=== PATIENT | male | born 1935 | race Caucasian/White ===

== ENCOUNTER 2021-01-19 20:24 | Inpatient (IN) | payer OTHER, MEDICARE ==
[~2021-01-19] VITALS: Ht 177.8 cm; Wt 84.0 kg
[~2021-01-19 20:24] MED LIST: Hydrocodone-Ap1 EA23; LOSARTAN POTAS100 MG; OXYACE5T PO; Percocet 5-3251 EACH PO
[2021-01-20 01:29] LABS: BASOPHILS ABSOLUTE AUTO 0.02 K/mm3 (0.00-0.23); BASOPHILS PERCENT AUTO 0 % (0-2); EOSINOPHILS ABSOLUTE AUTO 0.01 K/mm3 (0.00-0.68); EOSINOPHILS PERCENT AUTO 0 % (0-6); Hematocrit 34.1 % (37.0-53.0); Hemoglobin 10.5 g/dL (13.5-17.5); IMMATURE GRAN ABSOLUTE AUTO 0.04 K/mm3 (0.00-0.10); IMMATURE GRAN PERCENT AUTO 0 % (0-1); LYMPHOCYTES ABSOLUTE AUTO 0.48 K/mm3 (0.84-5.20); LYMPHOCYTES PERCENT AUTO 4 % (21-46); MONOCYTES ABSOLUTE AUTO 0.88 K/mm3 (0.16-1.47); MONOCYTES PERCENT AUTO 8 % (4-13); Mean Corpuscular HGB Conc 30.8 g/dL (31.5-36.5); Mean Corpuscular Volume 84 fL (80-100); Mean Platelet Volume 10.9 fL (9.1-12.4); NEUTROPHILS ABSOLUTE AUTO 9.54 K/mm3 (1.96-9.15); NEUTROPHILS PERCENT AUTO 87 % (41-73); Platelet Count 181 K/mm3 (150-400); RDW Coefficient Variation 14.6 % (11.7-14.2); RDW Standard Deviation 44.9 fL (35.1-46.3); Red Blood Cell Count 4.04 M/mm3 (4.30-5.90); White Blood Cell Count 10.97 K/mm3 (4.00-11.30)
[2021-01-20 01:44] LABS: Alanine Aminotransfer (ALT/SGP 12 U/L (12-78); Albumin, Blood 3.2 g/dL (3.4-5.0); Albumin/Globulin Ratio 0.9 (0.8-1.8); Alk Phos 68 U/L (50-136); Anion Gap 4 mmol/L (6-16); Aspartate Aminotrans (AST/SGOT 16 U/L (12-37); Bilirubin, Total 0.9 mg/dL (0.1-1.0); Blood Urea Nitrogen 21 mg/dL (8-24); Bun/Creatinine Ratio 20.2 (12.0-20.0); CO2, Blood 23 mmol/L (21-32); Calcium, Blood 8.1 mg/dL (8.5-10.1); Chloride, Blood 112 mmol/L (98-108); Creatinine, Blood 1.04 mg/dL (0.60-1.20); Globulin, Blood 3.4 g/dL (2.2-4.0); Glomerular Filtration Rate >60 (60-); Glucose, Blood 135 mg/dL (70-99); Potassium, Blood 4.6 mmol/L (3.5-5.5); Sodium, Blood 139 mmol/L (136-145); Total Protein, Blood 6.6 g/dL (6.4-8.2)
[2021-01-20 02:24] LABS: SARS-Cov-2 (COVID-19) PCR, MMC NEGATIVE (NEGATIVE)
--- NOTE | 2021-01-20 04:15 | NUR ---
SHIFT SUMMARY R HIP FX. PT HAS BEEN SLEEPING SINCE ARRIVAL TO UNIT, MEDICATED PER EMAR FOR PAIN HE REPORTED RELIEF AND TOLERABLE. R LEG SWOLLEN BUT PT REPORTS FULL SENSATION, ABLE TO MOVE TOES. NPO SINCE ARRIVAL TO UNIT, IV FLUIDS INFUSING. PT REPOSITIONS WELL IN BED. PLAN IS FOR SURGERY TODAY.
--- NOTE | 2021-01-20 10:32 | NUR ---
Echo being done at this time. Patient has denied need for pain med this a.m. Patient remains NPO for impending surgery.
--- NOTE | 2021-01-20 14:06 | NUR ---
C/o R hip pain , 09/02 at 1300. 25mcg Fentanyl iv given and pt. verbalize relief. Is a /10 at present. Urinal spill in bed and linen changed, pt. tolerate well with mild log rolling, pillow and assist 2. Resting at this time with no complaint. Remains NPO.
--- NOTE | 2021-01-20 18:38 | NUR ---
SHIFT SUMMARY SINCE ASSUMING CARE CARE AT APPROX 1430, PT TOLERATING PO. NPO AT MIDNIGHT PLAN FOR SURGERY TOMORROW. VOIDING. VITALS STABLE.
--- NOTE | 2021-01-21 04:34 | NUR ---
SHIFT SUMMARY PT [id number] WITH INTERMITTENT CONFUSION DURING SHIFT. WOULD ATTEMPT TO GET OUT OF BED AND FORGET THINGS OCCASIONALLY. BED ALARM ON DURING SHIFT. INC OF URINE DURING SHIFT BUT WOULD CALL TO USE URINAL AT TIMES. PAIN MANAGED PER EMAR. PT ABLE TO ROLL AND HELP REPOSITION IN BED. PLAN IS FOR SURGERY TODAY. NPO SINCE MIDNIGHT.
--- NOTE | 2021-01-21 11:10 | NUR ---
Pt. downstairs for surgery via bed.
--- NOTE | 2021-01-21 11:43 | NUR ---
PT INTO SDS VIA BED FROM SURG FLOOR. History, Chart, Medications and Allergies reviewed before start of procedure.Patient confirms NPO status and agrees with scheduled surgery. Lungs clear T/O to Auscultation.PT IS ALERT WITH EPISODES OF SLIGHT CONFUSION.EASILY REDIRECTED.
--- NOTE | 2021-01-21 12:13 | NUR ---
IV ACCESS TO RIGHT FOR ARM PRESENT UPON ARRIVAL TO [facility]. 20G, PATENT, FLUSHES EASILY WITH 10CC SALINE FLUSH. WINDOW DRESSING INTACT. COVERED WITH GAUZE AND NET SLEEVE TO PREVENT PT FROM PULLING OUT IV.
[2021-01-21 13:40] LABS: Source, Urine Catheter
--- NOTE | 2021-01-21 13:44 | NUR ---
ARRIVED INTO PACU WARM BLANKETS APPLIED DRSSINGS TIMES TWO IN PLACE RIGHT HIP ORAL AIRWAY.
[2021-01-21 13:57] LABS: Appearance, Urine Clear (Clear); Bilirubin, Urine Neg (Neg); Blood, Urine 1+ (Neg); Color, Urine Yellow (P-Yellow); Glucose Qualitative, Urine Neg (Neg); Ketones, Urine Neg (Neg); Leukocyte Esterase, Urine Neg (Neg); Nitrite, Urine Neg (Neg); Protein, Urine Neg (Neg); Specific Gravity, Urine 1.015 (1.003-1.022); Urobilinogen, Urine NORM (Normal)
[2021-01-21 14:12] LABS: White Blood Cells, Urine 0-2 /hpf (0-5)
[2021-01-21 14:13] LABS: Bacteria Rare /hpf; Squamous Epithelial Cells Not Seen /hpf (Few)
--- NOTE | 2021-01-21 14:36 | NUR ---
TAKEN TO SURGICAL FLOOR AFTER GIVEING REPORT. MET RN WITH PATIENT IN ROOM UPDATED REPORT.
--- NOTE | 2021-01-21 14:54 | NUR ---
Pt. arrive via bed from PACU at 1445. Drowsy but awakens easily. IVF infusing, o2 on at 4L per nc for sat 94%. Denies pain or nausea. Drsgs x 2 RLE intact, clean and dry.
--- NOTE | 2021-01-21 17:03 | NUR ---
Shift Summary: Pt. alert and oriented at times and then has acute confusion. Has pulled out 2 IV sites today, has new one in R upper Arm, covered with coban to protect and frequent reminders to not pull out. At times cannot remember that he had surgery today and requesting to "get up". At this time is on bedpan with help of aide. is in room. Dinner ordered and IVF infusing. Denies any pain. Oxygen on at 2L to keep sats at 94%.
[2021-01-21 17:15] LABS: Percent Saturation 6.3 % (20.0-50.0)
--- NOTE | 2021-01-21 18:20 | NUR ---
Pt. very agitated during visit " i want to get up and shave, let me up". After left, pt. fall asleep and did not eat dinner. No c/o pain. IVF infusing. Bed alarm on to alert staff of pt. rising.
[2021-01-22 04:16] LABS: BASOPHILS ABSOLUTE AUTO 0.01 K/mm3 (0.00-0.23); BASOPHILS PERCENT AUTO 0 % (0-2); EOSINOPHILS ABSOLUTE AUTO 0.01 K/mm3 (0.00-0.68); EOSINOPHILS PERCENT AUTO 0 % (0-6); Hematocrit 24.8 % (37.0-53.0); Hemoglobin 7.9 g/dL (13.5-17.5); IMMATURE GRAN ABSOLUTE AUTO 0.02 K/mm3 (0.00-0.10); IMMATURE GRAN PERCENT AUTO 0 % (0-1); LYMPHOCYTES ABSOLUTE AUTO 0.67 K/mm3 (0.84-5.20); LYMPHOCYTES PERCENT AUTO 9 % (21-46); MONOCYTES ABSOLUTE AUTO 0.91 K/mm3 (0.16-1.47); MONOCYTES PERCENT AUTO 12 % (4-13); Mean Corpuscular HGB 26.3 pg (26.0-34.0); Mean Corpuscular HGB Conc 31.9 g/dL (31.5-36.5); Mean Corpuscular Volume 83 fL (80-100); Mean Platelet Volume 11.2 fL (9.1-12.4); NEUTROPHILS PERCENT AUTO 78 % (41-73); Platelet Count 115 K/mm3 (150-400); RDW Coefficient Variation 14.6 % (11.7-14.2); RDW Standard Deviation 44.5 fL (35.1-46.3); White Blood Cell Count 7.32 K/mm3 (4.00-11.30)
[2021-01-22 04:42] LABS: Anion Gap 5 mmol/L (6-16); Blood Urea Nitrogen 21 mg/dL (8-24); Bun/Creatinine Ratio 21.7 (12.0-20.0); CO2, Blood 22 mmol/L (21-32); Calcium, Blood 7.8 mg/dL (8.5-10.1); Chloride, Blood 107 mmol/L (98-108); Creatinine, Blood 0.97 mg/dL (0.60-1.20); Glomerular Filtration Rate >60 (60-); Glucose, Blood 137 mg/dL (70-99); Magnesium, Blood 1.7 mg/dL (1.6-2.4); Potassium, Blood 4.4 mmol/L (3.5-5.5); Sodium, Blood 134 mmol/L (136-145)
--- NOTE | 2021-01-22 06:18 | NUR ---
Pt is in bed at this time where he remains throughout the night and is resting cmfortably. He is alert but is pleasantly confused, condition is stable. Assistance with basic care is required and provided as necessary, medicated as schedule. IV line in the right upper arm and is patent, no discomfort at the IV insertion site. Pt assisted with turning and repositioning to enhance comfort, insisted that he had no pain despite his recent surgical procedure on his right hip. His call panchal was given to him and was encouraged to call for help when assistance is needed as he is monitored.
[2021-01-22 17:09] LABS: Hematocrit 25.3 % (37.0-53.0)
--- NOTE | 2021-01-22 18:18 | NUR ---
SUMMARY: PT IS POD1 R HIP FIXATION, NAILING. PT IS A/O, SOMETIMES FORGETFUL BUT FOLLOWING COMMANDS AND USING CALL LIGHT. SURGICAL SITE WNL, PT HAS DENIED PAIN, CSM INTACT TO R LEG. ABLE TO WORK WITH THERAPY, BUT VERY WEAK, MAX ASSIST WITH 3 STAFF TO RECLINER. NO ACUTE CONCERNS AT THIS TIME, WILL MONITOR AND REPOR TO NOC RN
[2021-01-23 04:04] LABS: BASOPHILS ABSOLUTE AUTO 0.01 K/mm3 (0.00-0.23); BASOPHILS PERCENT AUTO 0 % (0-2); EOSINOPHILS ABSOLUTE AUTO 0.25 K/mm3 (0.00-0.68); EOSINOPHILS PERCENT AUTO 4 % (0-6); Hematocrit 21.9 % (37.0-53.0); Hemoglobin 7.2 g/dL (13.5-17.5); IMMATURE GRAN ABSOLUTE AUTO 0.03 K/mm3 (0.00-0.10); IMMATURE GRAN PERCENT AUTO 1 % (0-1); LYMPHOCYTES ABSOLUTE AUTO 1.08 K/mm3 (0.84-5.20); LYMPHOCYTES PERCENT AUTO 17 % (21-46); MONOCYTES ABSOLUTE AUTO 0.61 K/mm3 (0.16-1.47); MONOCYTES PERCENT AUTO 10 % (4-13); Mean Corpuscular HGB Conc 32.9 g/dL (31.5-36.5); Mean Corpuscular Volume 82 fL (80-100); Mean Platelet Volume 11.5 fL (9.1-12.4); NEUTROPHILS ABSOLUTE AUTO 4.47 K/mm3 (1.96-9.15); NEUTROPHILS PERCENT AUTO 69 % (41-73); Platelet Count 143 K/mm3 (150-400); RDW Coefficient Variation 14.8 % (11.7-14.2); RDW Standard Deviation 43.8 fL (35.1-46.3); Red Blood Cell Count 2.67 M/mm3 (4.30-5.90); White Blood Cell Count 6.45 K/mm3 (4.00-11.30)
[2021-01-23 04:21] LABS: Albumin, Blood 2.3 g/dL (3.4-5.0); Anion Gap 5 mmol/L (6-16); Blood Urea Nitrogen 28 mg/dL (8-24); Bun/Creatinine Ratio 25.7 (12.0-20.0); CO2, Blood 23 mmol/L (21-32); Calcium, Blood 7.6 mg/dL (8.5-10.1); Chloride, Blood 108 mmol/L (98-108); Creatinine, Blood 1.09 mg/dL (0.60-1.20); Glomerular Filtration Rate >60 (60-); Glucose, Blood 103 mg/dL (70-99); Sodium, Blood 136 mmol/L (136-145)
--- NOTE | 2021-01-23 05:56 | NUR ---
SHIFT SUMMARY POD2 R FEMUR FIXATION/NAILING, ALERT BUT CONFUSED/FORGETFUL, TOLERATING PO, HEAVY 2 PERSON STAND PIVOT TO GET FROM CHAIR TO BED, PLEASANT AND COOPERATIVE c ALL NURSING CARE. DENIES PAIN T/O SHIFT. NO ACUTE EVENTS THIS SHIFT. CALL LIGHT IN REACH, WILL CTM AND REPORT TO DAY RN.
--- NOTE | 2021-01-23 16:51 | NUR ---
SHIFT SUMMARY PT POD #2 FOR A R FEMUR FIXATION WITH NAILING. PT DENIES PAIN THIS SHIFT. MEDICATED ONCE WITH TYLENOL FOR HEAD ACHE. PT INCONT OF URINE AND CHANGED NEEDED. [address] ON THE R HIP CDI. PT IS A/O X2; PLEASANT AND CONFUSED AT TIMES. EASILY REDIRECTABLE. HEAVY 2 PERSON MAX ASSIST TO GET UP. VSS. WILL REPORT TO EFRAIN AGEE.
[2021-01-24 04:06] LABS: Hematocrit 21.1 % (37.0-53.0); Hemoglobin 6.9 g/dL (13.5-17.5)
--- NOTE | 2021-01-24 06:42 | NUR ---
PT IS A/OX2-3 WITH INTERMITENT FORGETFULLNESS AND CONFUSION. HE IS ABLE TO MAKE HIS NEEDS KNOWN. NO EVENTS OVERNIGHT. KAW. 2 PERSON MAX ASSIST W/BED REPOSITIONING. WEARING ADULT DISPOSABLE BRIEFS FOR B/B INCONTINENCE. NO BM OVERNIGHT. PASSING GAS. DENIES ANY N/V. BT'S POS X4. PIV TO RUE PATENT, FLUSHES WELL, SL. ROOM AIR. CBS. RT HIP INCISOIN W/2 AQUACELS- DRSG'S WITH SMALL AMT OF DRNG/SHADOWING. POS CSM'S TO RLE/RT FOOT. DENIED ANY NUMBNESS/TINGLING. PURPLE BRUISING TO PENIS/GROIN, SUSTIANED IN FALL. RT HIP S/P NAILING. FX SUSTIANED FROM FALL OVER HIS DOG. TTWB TO RLE. PLAN IS TO D/C TO SNF FOR REHAB.
--- NOTE | 2021-01-24 15:20 | NUR ---
TRANSFUSION FINISHED, PT TOLERATED WELL. NO SIGNS OF TRANSFUSION REACTION AT THIS TIME, LUNG SOUNDS REMAIN UNCHANGED. VITAL SIGNS STABLE THROUGHOUT.
--- NOTE | 2021-01-24 16:12 | NUR ---
SHIFT SUMMARY PT A/O TODAY. VITAL SIGNS STABLE. POD3 R HIP NAILING, AQUACEL DRESSINGS CHANGED TODAY, C/D/I. TRANSFUSION OF PRBCS, TOLERATED WELL. WILL REPEAT H/H TODAY. WORKED WITH PT/OT TODAY BUT WAS NOT ABLE TO GET OUT OF BED. PT REPORTED L KNEE PAIN TODAY, BUT NO PAIN IN R HIP. TOLERATING PO INTAKE, VOIDING AND PASSING FLATUS. PLAN TO DC TOMORROW TO SNF IF H/H STABLE. WILL REPORT TO ONCOMING RN.
[2021-01-24 17:13] LABS: Hematocrit 26.9 % (37.0-53.0); Hemoglobin 8.6 g/dL (13.5-17.5)
[2021-01-25 04:44] LABS: Hematocrit 24.9 % (37.0-53.0); Hemoglobin 8.2 g/dL (13.5-17.5)
--- NOTE | 2021-01-25 05:30 | NUR ---
Pt is in bed at this time and is resting in stable condition. Alert and confused, assisted with care and adls, assisted with bathroom and toileting needs as pt depends on staff for his basic care needs. Denies pain/discomfort, medicated as scheduled. R hip incision intatct and covered with aquacel dressing. Bruising noted on his inguinal during assessment. Pt given his call panchal and encouraged to call for help when assistance is needed as he is monitored.
[2021-01-25 14:34] LABS: SARS-Cov-2 (COVID-19) PCR, MMC NEGATIVE (NEGATIVE)
--- NOTE | 2021-01-25 17:11 | NUR ---
SHIFT SUMMARY POD 4 HIP FIXTURE PATIENT ORIENTED X4 DURING ASSESSMENT BUT WOULD AWAKE CONFUSED AND ASKING WHERE HIS WAS. MORE SLEEPY TODAY BUT WAS ABLE TO WORK WITH THERAPY. DENIES PAIN TO THIS RN. BRUISING REMAINS TO R GROIN, REMAINS UNCHANGED. TOLERATING PO. INC OF VOID. PLAN IS TO DC TO SNF T[place]OR[place].
--- NOTE | 2021-01-26 05:12 | NUR ---
PT IN BED AND IS RESTING QUIETLY, CONDITION IS STABLE. ALERT, AWAKE, BUT IS PLEASANTLY CONFUSED. ASSISTED WITH CARE AND ADLS, ASSISTED WITH REPOSITIONING TO ENHANCE COMFORT, MEDICATED SCHEDULED. CALL LIGHT GIVEN TO HIM AND ENCOURAGED TO CALL FOR HELP WHEN ASSISTANCE IS NEEDED HE IS MONITORED.
--- NOTE | 2021-01-26 10:58 | NUR ---
Pt. discharged at 1050 to [facility]. Report called. W/C transport here and belongins sent with pt.-2 person max assist with gaitbelt to w/c. Patient tolerate well. New brief placed prior to dc and francisco javier care done.
== END 2021-01-26 10:50 | DRG 481 ==
LOC: ER 20:24 → SURS 01-20 00:34 → ER 01-20 01:34 → SURS 01-20 02:00
PROVIDERS: Anesthesiology; Internal Medicine; Orthopaedic Surgery; Physician Assistant; ADMIT Internal Medicine
PROC: 0QS636Z Reposition Right Upper Femur with Intramedullary Internal Fixation Device, Percutaneous Approach (ICD-10-PCS; 2021-01-21)
PROC: 30233N1 Transfusion of Nonautologous Red Blood Cells into Peripheral Vein, Percutaneous Approach (ICD-10-PCS; principal; 2021-01-24)
DX: S72.141A Displaced intertrochanteric fracture of right femur, initial encounter for closed fracture (principal); D62 Acute posthemorrhagic anemia; G91.2 (Idiopathic) normal pressure hydrocephalus; W01.0XXA Fall on same level from slipping, tripping and stumbling without subsequent striking against object, initial encounter; M10.9 Gout, unspecified; Z96.651 Presence of right artificial knee joint; Z20.822 Contact with and (suspected) exposure to COVID-19; I35.0 Nonrheumatic aortic (valve) stenosis; I10 Essential (primary) hypertension; Y92.009 Unspecified place in unspecified non-institutional (private) residence as the place of occurrence of the external cause
CPT/HCPCS: 36415; 70450; 73502; 80048; 80053; 80069; 81001; 82728; 83540; 83550; 83735; 85014; 85018; 85025; 86850; 86900; 86901; 86923; 90686; 93005; 93010; 93306; 96374; 96375; 97110; 97162; 97166; 97530; 99285-25; A9270; C1713; C1769; J0690; J1100; J1650; J2270; J2370; J2405; J2704; J3010; J7030; J7120; P9016; U0004

== ENCOUNTER 2021-04-09 21:54 | Emergency (ER) | payer MEDICARE ==
[~2021-04-09] VITALS: Ht 175.3 cm; Wt 74.8 kg
[2021-04-09] MEDS ORDERED: Voltaren100 GM TOP (22:42)
[2021-04-09] MEDS ORDERED: MIRALAX11910 PO (22:48)
[2021-04-09] MEDS ORDERED: DOK100 MG PO (22:48)
[2021-04-09] MEDS ORDERED: Senna Laxative8.6 MG (22:49)
== END 2021-04-10 01:48 | disposition home or self-care (01) ==
LOC: ER 21:54
DX: M17.12 Unilateral primary osteoarthritis, left knee (principal); M10.9 Gout, unspecified; M19.90 Unspecified osteoarthritis, unspecified site; Z96.651 Presence of right artificial knee joint
CPT/HCPCS: 73560-LT; 96372; 96374; 99283-25; A9270; J1885; J2270

== ENCOUNTER 2021-07-18 18:34 | Observation (INO) | payer MEDICARE ==
[~2021-07-18] VITALS: Ht 162.6 cm; Wt 77.1 kg
[~2021-07-18 18:34] MED LIST changes: +DOK100 MG PO; +MIRALAX11910 PO; +Senna Laxative8.6 MG; +Voltaren100 GM TOP
[2021-07-18 19:40] LABS: BASOPHILS ABSOLUTE AUTO 0.03 K/mm3 (0.00-0.23); BASOPHILS PERCENT AUTO 0 % (0-2); EOSINOPHILS ABSOLUTE AUTO 0.47 K/mm3 (0.00-0.68); EOSINOPHILS PERCENT AUTO 5 % (0-6); Hematocrit 36.1 % (37.0-53.0); Hemoglobin 11.2 g/dL (13.5-17.5); IMMATURE GRAN ABSOLUTE AUTO 0.03 K/mm3 (0.00-0.10); IMMATURE GRAN PERCENT AUTO 0 % (0-1); LYMPHOCYTES ABSOLUTE AUTO 1.96 K/mm3 (0.84-5.20); LYMPHOCYTES PERCENT AUTO 21 % (21-46); MONOCYTES ABSOLUTE AUTO 0.69 K/mm3 (0.16-1.47); MONOCYTES PERCENT AUTO 8 % (4-13); Mean Corpuscular HGB 23.3 pg (26.0-34.0); Mean Corpuscular Volume 75 fL (80-100); Mean Platelet Volume 9.3 fL (9.1-12.4); NEUTROPHILS ABSOLUTE AUTO 6.07 K/mm3 (1.96-9.15); NEUTROPHILS PERCENT AUTO 66 % (41-73); Platelet Count 284 K/mm3 (150-400); RDW Coefficient Variation 17.6 % (11.7-14.2); RDW Standard Deviation 47.8 fL (35.1-46.3); Red Blood Cell Count 4.81 M/mm3 (4.30-5.90); White Blood Cell Count 9.25 K/mm3 (4.00-11.30)
[2021-07-18 20:06] LABS: Alanine Aminotransfer (ALT/SGP 14 U/L (12-78); Albumin, Blood 3.1 g/dL (3.4-5.0); Albumin/Globulin Ratio 0.8 (0.8-1.8); Alk Phos 76 U/L (50-136); Anion Gap 6 mmol/L (6-16); Aspartate Aminotrans (AST/SGOT 10 U/L (12-37); Bilirubin, Total 0.7 mg/dL (0.1-1.0); Blood Urea Nitrogen 19 mg/dL (8-24); Bun/Creatinine Ratio 25.6 (12.0-20.0); CO2, Blood 25 mmol/L (21-32); Calcium, Blood 8.7 mg/dL (8.5-10.1); Chloride, Blood 106 mmol/L (98-108); Creatinine, Blood 0.74 mg/dL (0.60-1.20); Ethanol (Alcohol), Blood, Med <3 mg/dL; Glomerular Filtration Rate >60 (60-); Glucose, Blood 107 mg/dL (70-99); Potassium, Blood 4.1 mmol/L (3.5-5.5); Salicylate <1.7 mg/dL (2.8-20.0); Sodium, Blood 137 mmol/L (136-145); Total Protein, Blood 7.1 g/dL (6.4-8.2)
[2021-07-18 20:12] LABS: Acetaminophen, Random <2.0 ug/mL (10.0-30.0)
== END 2021-07-25 10:32 ==
LOC: ER 18:34 → EOR 18:35
PROVIDERS: Physician Assistant; ADMIT Emergency Medicine
DX: F03.91 Unspecified dementia, unspecified severity, with behavioral disturbance (principal); R45.851 Suicidal ideations
CPT/HCPCS: 80053; 85025; 93005; 93010; A9270; G0480; J1885

== ENCOUNTER → 2021-09-06 | Outpatient (CLI) | payer MEDICARE, OTHER ==
[2021-09-06 17:09] LABS: Hemoglobin 12.7 g/dL (13.5-17.5); Mean Corpuscular HGB 23.7 pg (26.0-34.0); Mean Corpuscular Volume 77 fL (80-100); Mean Platelet Volume 10.2 fL (9.1-12.4); Platelet Count 344 K/mm3 (150-400); RDW Coefficient Variation 17.2 % (11.7-14.2); RDW Standard Deviation 47.5 fL (35.1-46.3); Red Blood Cell Count 5.35 M/mm3 (4.30-5.90); White Blood Cell Count 8.77 K/mm3 (4.00-11.30)
[2021-09-06 17:26] LABS: Bun/Creatinine Ratio 26.8 (12.0-20.0); Calcium, Blood 8.6 mg/dL (8.5-10.1); Creatinine, Blood 0.82 mg/dL (0.60-1.20)
== END | disposition home or self-care (01) ==
LOC: EDSTATUS 14:05 → LAB RH 14:32
PROVIDERS: Internal Medicine
DX: I11.9 Hypertensive heart disease without heart failure (principal); G91.2 (Idiopathic) normal pressure hydrocephalus; M10.9 Gout, unspecified; I35.0 Nonrheumatic aortic (valve) stenosis
CPT/HCPCS: 80048; 85027

== ENCOUNTER 2023-09-26 19:11 | Emergency (ER) | payer MEDICARE, OTHER ==
[~2023-09-26] VITALS: Ht 177.8 cm; Wt 68.0 kg
[2023-09-26 22:19] LABS: BASOPHILS ABSOLUTE AUTO 0.03 K/mm3 (0.00-0.23); BASOPHILS PERCENT AUTO 1 % (0-2); EOSINOPHILS ABSOLUTE AUTO 0.25 K/mm3 (0.00-0.68); EOSINOPHILS PERCENT AUTO 4 % (0-6); Hematocrit 37.6 % (37.0-53.0); Hemoglobin 11.5 g/dL (13.5-17.5); IMMATURE GRAN ABSOLUTE AUTO 0.02 K/mm3 (0.00-0.10); IMMATURE GRAN PERCENT AUTO 0 % (0-1); LYMPHOCYTES ABSOLUTE AUTO 1.67 K/mm3 (0.84-5.20); LYMPHOCYTES PERCENT AUTO 26 % (21-46); MONOCYTES ABSOLUTE AUTO 0.62 K/mm3 (0.16-1.47); MONOCYTES PERCENT AUTO 10 % (4-13); Mean Corpuscular HGB 22.8 pg (26.0-34.0); Mean Corpuscular HGB Conc 30.6 g/dL (31.5-36.5); Mean Corpuscular Volume 75 fL (80-100); Mean Platelet Volume 10.2 fL (9.1-12.4); NEUTROPHILS ABSOLUTE AUTO 3.81 K/mm3 (1.96-9.15); NEUTROPHILS PERCENT AUTO 60 % (41-73); Platelet Count 225 K/mm3 (150-400); RDW Coefficient Variation 17.4 % (11.7-14.2); RDW Standard Deviation 46.7 fL (35.1-46.3); Red Blood Cell Count 5.05 M/mm3 (4.30-5.90)
[2023-09-26 22:48] LABS: Albumin, Blood 3.7 g/dL (3.4-5.0); Albumin/Globulin Ratio 0.9 (0.8-1.8); Bun/Creatinine Ratio 28.8 (12.0-20.0); Calcium, Blood 8.7 mg/dL (8.5-10.1); Creatinine, Blood 0.9 mg/dL (0.60-1.20); Globulin, Blood 3.9 g/dL (2.2-4.0); Total Protein, Blood 7.6 g/dL (6.4-8.2)
[2023-09-27] MEDS ORDERED: CEPH500 PO (00:39)
[2023-09-27] MEDS ORDERED: Cephalexin Monohydrate 500 MG Cap PO ONE (00:40)
[2023-09-27 04:00] VITALS: BP 118/72
== END 2023-09-27 05:34 | disposition home or self-care (01) ==
LOC: ER 19:11
PROVIDERS: Physician Assistant
DX: L03.032 Cellulitis of left toe (principal); F03.90 Unspecified dementia, unspecified severity, without behavioral disturbance, psychotic disturbance, mood disturbance, and anxiety; Z79.899 Other long term (current) drug therapy
CPT/HCPCS: 73660; 73701; 80053; 85025; 99284-25; A9270; Q9967

== ENCOUNTER 2023-10-28 06:05 | Emergency (ER) | payer MEDICARE, OTHER ==
[~2023-10-28] VITALS: Ht 177.8 cm; Wt 74.8 kg
[~2023-10-28 06:05] MED LIST changes: +CEPH500 PO
[2023-10-28 06:38] LABS: BASOPHILS ABSOLUTE AUTO 0.03 K/mm3 (0.00-0.23); BASOPHILS PERCENT AUTO 0 % (0-2); EOSINOPHILS ABSOLUTE AUTO 0.17 K/mm3 (0.00-0.68); EOSINOPHILS PERCENT AUTO 2 % (0-6); Hematocrit 33.8 % (37.0-53.0); Hemoglobin 10.5 g/dL (13.5-17.5); IMMATURE GRAN ABSOLUTE AUTO 0.03 K/mm3 (0.00-0.10); IMMATURE GRAN PERCENT AUTO 0 % (0-1); LYMPHOCYTES ABSOLUTE AUTO 1.02 K/mm3 (0.84-5.20); LYMPHOCYTES PERCENT AUTO 12 % (21-46); MONOCYTES ABSOLUTE AUTO 0.88 K/mm3 (0.16-1.47); MONOCYTES PERCENT AUTO 11 % (4-13); Mean Corpuscular HGB 23.1 pg (26.0-34.0); Mean Corpuscular HGB Conc 31.1 g/dL (31.5-36.5); Mean Corpuscular Volume 74 fL (80-100); Mean Platelet Volume 10.3 fL (9.1-12.4); NEUTROPHILS ABSOLUTE AUTO 6.13 K/mm3 (1.96-9.15); NEUTROPHILS PERCENT AUTO 74 % (41-73); Platelet Count 195 K/mm3 (150-400); RDW Coefficient Variation 16.9 % (11.7-14.2); RDW Standard Deviation 45.1 fL (35.1-46.3); Red Blood Cell Count 4.55 M/mm3 (4.30-5.90); White Blood Cell Count 8.26 K/mm3 (4.00-11.30)
[2023-10-28 06:58] LABS: Alanine Aminotransfer (ALT/SGP 13 U/L (12-78); Albumin, Blood 3.2 g/dL (3.4-5.0); Albumin/Globulin Ratio 0.9 (0.8-1.8); Alk Phos 110 U/L (50-136); Anion Gap 11 mmol/L (3-11); Aspartate Aminotrans (AST/SGOT 10 U/L (12-37); Bilirubin, Total 1.4 mg/dL (0.1-1.0); Blood Urea Nitrogen 20 mg/dL (8-24); CO2, Blood 23 mmol/L (21-32); Calcium, Blood 8.4 mg/dL (8.5-10.1); Chloride, Blood 108 mmol/L (98-108); Creatinine, Blood 0.84 mg/dL (0.60-1.20); Globulin, Blood 3.7 g/dL (2.2-4.0); Glomerular Filtration Rate 83 (60-); Glucose, Blood 113 mg/dL (70-99); Sodium, Blood 138 mmol/L (136-145); Total Protein, Blood 6.9 g/dL (6.4-8.2)
[2023-10-28] MEDS ORDERED: Ketorolac Tromethamine 30mg Vial IV ONE (07:10)
[2023-10-28 08:00] VITALS: BP 88/57
[2023-10-28] MEDS ORDERED: ACET500 PO (08:09)
== END 2023-10-28 15:08 | disposition home or self-care (01) ==
LOC: ER 06:05
PROVIDERS: Student in an Organized Health Care Education/Training Program
DX: M17.12 Unilateral primary osteoarthritis, left knee (principal); G89.29 Other chronic pain; Z79.899 Other long term (current) drug therapy
CPT/HCPCS: 73562-LT; 80053; 85025; 85651; 86140; J1885

== ENCOUNTER 2024-04-22 02:49 | Observation (INO) | payer MEDICARE, OTHER ==
[~2024-04-22] VITALS: Ht 170.2 cm; Wt 72.6 kg
[~2024-04-22 02:49] MED LIST changes: +ACET500 PO; -Senna Laxative8.6 MG; +Senna Laxative8.6 MG PO
[2024-04-22 03:22] LABS: BASOPHILS ABSOLUTE AUTO 0.03 K/mm3 (0.00-0.23); BASOPHILS PERCENT AUTO 0 % (0-2); EOSINOPHILS ABSOLUTE AUTO 0.48 K/mm3 (0.00-0.68); EOSINOPHILS PERCENT AUTO 7 % (0-6); Hemoglobin 9.4 g/dL (13.5-17.5); IMMATURE GRAN ABSOLUTE AUTO 0.02 K/mm3 (0.00-0.10); IMMATURE GRAN PERCENT AUTO 0 % (0-1); LYMPHOCYTES ABSOLUTE AUTO 1.52 K/mm3 (0.84-5.20); LYMPHOCYTES PERCENT AUTO 23 % (21-46); MONOCYTES PERCENT AUTO 10 % (4-13); Mean Corpuscular HGB 25.3 pg (26.0-34.0); Mean Corpuscular HGB Conc 30.3 g/dL (31.5-36.5); Mean Corpuscular Volume 84 fL (80-100); Mean Platelet Volume 11.1 fL (9.1-12.4); NEUTROPHILS ABSOLUTE AUTO 3.99 K/mm3 (1.96-9.15); NEUTROPHILS PERCENT AUTO 59 % (41-73); Platelet Count 173 K/mm3 (150-400); RDW Coefficient Variation 14.7 % (11.7-14.2); RDW Standard Deviation 45.1 fL (35.1-46.3); Red Blood Cell Count 3.71 M/mm3 (4.30-5.90); White Blood Cell Count 6.74 K/mm3 (4.00-11.30)
[2024-04-22 03:51] LABS: Albumin, Blood 3.2 g/dL (3.4-5.0); Bilirubin, Total 0.6 mg/dL (0.1-1.0); Bun/Creatinine Ratio 30.1 (12.0-20.0); Calcium, Blood 8.1 mg/dL (8.5-10.1); Creatinine, Blood 0.8 mg/dL (0.60-1.20); Globulin, Blood 3.1 g/dL (2.2-4.0); Magnesium, Blood 2.3 mg/dL (1.6-2.4); Phosphorus, Blood 3.1 mg/dL (2.5-4.9); Potassium, Blood 4.2 mmol/L (3.5-5.5); Thyroid Stimulating Hormone 1.53 uIU/mL (0.360-4.800); Total Protein, Blood 6.3 g/dL (6.4-8.2)
[2024-04-22] MEDS ORDERED: CefTRIAXone Sodium 1,000 MG in NS 50 ML IV ONE (04:00)
[2024-04-22] MEDS ORDERED: Azithromycin 500 MG in NS 250 ML IV ONE (04:00)
[2024-04-22 04:17] LABS: CORONAVIRUS COVID-19 AG Negative (NEGATIVE); INFLUENZA A AG Negative (NEGATIVE); INFLUENZA B AG Negative (NEGATIVE)
[2024-04-22] MEDS ORDERED: Ondansetron HCl 2 MG / ML 2ML Vial IV PRN (06:05)
[2024-04-22] MEDS ORDERED: FLU VACC TS2024-25(6MOS UP)/PF 45 MCG/0.5 ML SYRINGE IM ONE (06:05)
[2024-04-22 06:46] LABS: Source, Urine Clean Catch
[2024-04-22 06:59] LABS: Appearance, Urine Clear (Clear); Bilirubin, Urine Neg (Neg); Blood, Urine 1+ (Neg); Color, Urine Yellow (P-Yellow); Glucose Qualitative, Urine Neg (Neg); Ketones, Urine Neg (Neg); Leukocyte Esterase, Urine 3+ (Neg); Nitrite, Urine Pos (Neg); Protein, Urine 1+ (Neg); Specific Gravity, Urine 1.015 (1.003-1.022); Urobilinogen, Urine NORM (Normal)
[2024-04-22] MEDS ORDERED: Lactated Ringer's 1,000 ML IV SCH (07:00)
[2024-04-22 07:10] LABS: Bacteria Many /hpf; Squamous Epithelial Cells Rare /hpf (Few); White Blood Cells, Urine 50-100 /hpf (0-5)
[2024-04-22] MEDS ORDERED: CEFU500T30 PO (13:24)
[2024-04-22 16:00] VITALS: BP 144/85
[2024-04-23] MEDS ORDERED: Enoxaparin 40 MG/0.4 ML SYR SC SCH (09:00)
== END 2024-04-22 17:08 | disposition home or self-care (01) ==
LOC: ER 02:49 → ERHOLD 02:50
PROVIDERS: Emergency Medicine; ADMIT Student in an Organized Health Care Education/Training Program
DX: I95.9 Hypotension, unspecified (principal); F03.90 Unspecified dementia, unspecified severity, without behavioral disturbance, psychotic disturbance, mood disturbance, and anxiety; I35.0 Nonrheumatic aortic (valve) stenosis; R40.0 Somnolence; M19.90 Unspecified osteoarthritis, unspecified site; M10.9 Gout, unspecified; E86.0 Dehydration; Z79.899 Other long term (current) drug therapy
CPT/HCPCS: 71045; 80053; 81001; 83605; 83735; 84100; 84145; 84443; 84484; 85025; 87040; 87086; 87428-QW; 93005; 93010; 96365; 96367; 99285-25; G0378; J0456; J0696; J7050

== ENCOUNTER 2024-04-24 07:59 | Emergency (ER) | payer MEDICARE, OTHER ==
[~2024-04-24] VITALS: Ht 182.9 cm; Wt 77.1 kg
[~2024-04-24 07:59] MED LIST changes: +CEFU500T30 PO
[2024-04-24 08:05] VITALS: BP 115/83
== END 2024-04-24 12:09 | disposition home or self-care (01) ==
LOC: ER 07:59
DX: S63.642A Sprain of metacarpophalangeal joint of left thumb, initial encounter (principal); X58.XXXA Exposure to other specified factors, initial encounter; Z79.899 Other long term (current) drug therapy
CPT/HCPCS: 73130; 99284-25